=== PATIENT | female | born 2005 | race Caucasian/White ===

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

== ENCOUNTER 2023-08-26 12:15 | Inpatient (IN) | payer OTHER, MEDICAID, SELFPAY ==
[2023-08-26] VITALS (42 sets, daily range): BP systolic 120–176; BP diastolic 58–96; PULSE 109–137; RESP 16; TEMP 37.1–37.7; O2SAT 88–100; BMI 26.2
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
[2023-08-26] MEDS: Lactated Ringers 1,000 ML 999 ML IV (12:30)
[2023-08-26 12:35] LABS: ROM Internal Control Test YES-OK TO RESULT pt. (Internal QC); ROM Patient Test Negative (Negative); Record Kit Lot#, ROM+ K1866
[2023-08-26 13:21] LABS: Absolute Lymphocyte Count 0.98 X10^3/uL (0.83-4.51); Absolute Neutrophil Count 10.3 X10^3/uL (2.0-7.7); Basophil# 0.04 X10^3/uL; Basophil% 0.3 % (0-1); Eosinophil# 0.05 X10^3/uL; Eosinophils% 0.4 % (0-5); Hematocrit 36.8 % (37-47); Hemoglobin 11.8 g/dL (12.0-15.0); Lymphocyte # 0.98 X10^3/ul (0.83-4.51); Mean Corp Hgb Conc 32.1 g/dL (32-36); Mean Corpuscular Hgb 26.3 pg (27.0-32.0); Mean Platelet Vol. 9.2 fl (6.2-12.0); Monocyte# 0.83 X10^3/uL; Monocyte% 6.7 % (0-10); NRBC Flagged by Analyzer 0 % (0-5); Neutrophil # 10.34 X10^3/uL (2.7-7.7); Platelet Count 304 K/mm3 (150-450); RBC Distribution Width CV 12.6 % (11.6-14.6); RBC Distribution Width SD 37.5 fl (35.1-43.9); Red Blood Count 4.49 M/mm3 (4.2-5.4); White Blood Count 12.3 K/mm3 (4.4-11.0)
[2023-08-26] MEDS: Lactated Ringers 1,000 ML 50 ML IV (13:40)
[2023-08-26] MEDS: Penicillin G Pot 5,000,000 UNITS in 0.9% Normal Saline (100mL MB+) 100 ML 150 UNITS IV (13:41)
[2023-08-26] MEDS: fentaNYL-bupivacaine (epidural) 100 ML BAG EPIDURAL ×3 (14:00→23:03)
[2023-08-26 14:02] LABS: AST(SGOT) 19 U/L (15-37); Alanine Aminotransfer ALT/SGPT 22 U/L (13-56); Creatinine, Serum 0.34 mg/dL (0.55-1.02); EST Glomerular Filtration Rate 261 mL/min (>60); Est Glom Filt Rate - Afr Amer 316 mL/min (>60); Estimated Creatinine Clearance 282.59 ml/min; Uric Acid 3.3 mg/dL (2.6-6.0)
[2023-08-26 14:11] LABS: Syphilis Antibodies Non-reactive
[2023-08-26 16:32] LABS: Protein, Urine (Random) < 6.0 mg/dL (<11.9)
[2023-08-26] MEDS: LACTATED RINGERS 500 ML 999 ML IV ×2 (17:04→22:58)
[2023-08-26] MEDS: Penicillin G 3,000,000 Units 50 ML 100 UNITS IV ×2 (17:57→21:37)
[2023-08-26] MEDS: Ondansetron 4 MG/2 ML Vial IV (18:59)
[2023-08-26] MEDS: Lactated Ringers 1,000 ML 200 ML IV (19:21)
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
[2023-08-26] MEDS: DiphenhydrAMINE 25 MG Capsule 50 MG PO (20:39)
[2023-08-26] MEDS: proCHLORPERazine 10 MG/2 ML Vial IV (21:06)
[2023-08-26] MEDS: 0.9% Saline Lock 10 ML Syringe IV (21:06)
[2023-08-26] MEDS: Acetaminophen 500 MG Tablet PO (23:26)
[2023-08-27] VITALS (59 sets, daily range): BP systolic 115–153; BP diastolic 56–74; PULSE 91–156; RESP 16–17; TEMP 36.3–36.9; O2SAT 81–99
--- NOTE | 2023-08-27 01:27 | PLAC_PTH ---
PATIENT: TAMMY ROMEO LOC: [facility] U#:[id number] AGE/SX: 17/F ROOM: WP014 RE08/26/[address]: Nicole Collins CNM : 2005 BED: 1 DIS: 08/29/2023 SPEC #: [id number] RECD: 08/28/23 11:35 STATUS: CAROL REOj #: [id number] ENMA: 08/27/23 01:[address]: Nicole Collins DEPT: SURGICAL PATHOLOGY RECD BY: Henrietta Kasper ENTERED: 08/28/23 11:36 SP TYPE: PLACENTA OTHR DR: Dr. Ya Turcios MD Tissues: Placenta, NOS Procedures: Surgery Specimen Level V HEADER OPERATION: Delivery PRE-OP DIAGNOSIS: Delivery TISSUE SUBMITTED: Placenta MICROSCOPIC DIAGNOSIS Placenta: Placental disc - third trimester placenta (527 gm). - Focal area of intraparenchymal hemorrhage (0.5cm in greatest dimension) Membranes - Focal minimal acute chorioamnionitis. Umbilical cord - three blood vessels and no pathologic diagnosis. SJ: 08/29/23 MICROSCOPIC DESCRIPTION Slides are reviewed. GROSS DESCRIPTION SPECIMEN: PLACENTA / CLINICAL INFORMATION: A. Weight: 2.79 kg B. Gestational Age:36 weeks C. Sex: Female PLACENTAL WEIGHT (POST FIXATION): 527 gm PLACENTAL DIMENSIONS: 18.0 x 16.0 x 3.0 cm PLACENTAL SHAPE: Usual ovoid PLACENTAL WEIGHT FOR GESTATIONAL AGE: Within 10-99th percentile MEMBRANES - Present A. Insertion: Marginal B. Site of rupture from edge: 5.0 cm from edge of placental disc C. Color of membrane: Tobias-wang D. Abnormalities: None UMBILICAL CORD - Present A. Color: Tobias-wang B. Insertion: Central C. Length: 37.0 cm D. Diameter: 1.2 cm E. Number of vessels: Three F. Abnormalities: None PLACENTAL DISC - Present A. Color of surface: Tobias-wang B. surface abnormalities: None C. Maternal cotyledons: Intact with minimal tears D. Attached retro placental clot: No clot E. Cut surface: Dark red and spongy F. Lesions: None G. Separate clot: Absent SECTIONS SUBMITTED: 1. Membrane roll 2. Cord, maternal end 3. Cord, end 4. Placental disc, and maternal surfaces 5. Placental disc, and maternal surfaces 6. Placental disc, and maternal surfaces / 08/28/23 TC:2 CPT: 91810
[2023-08-27] MEDS: Oxytocin 15 Units/NS 250ml 15 UNITS/250 ML IV.SOLN 334 UNITS IV (01:31)
[2023-08-27] MEDS: Methylergonovine 0.2 MG/ML Ampul IM (01:35)
[2023-08-27] MEDS: Oxytocin 15 Units/NS 250ml 15 UNITS/250 ML IV.SOLN 83 UNITS IV (01:59)
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
[2023-08-27] MEDS: Naproxen 500 MG Tablet PO (09:56)
[2023-08-27] MEDS: Senna/Docusate Sodium 1 Tablet PO (15:31)
[2023-08-27] MEDS: Acetaminophen 500 MG Tablet 1000 MG PO (15:31)
[2023-08-28] VITALS (10 sets, daily range): BP systolic 115–122; BP diastolic 55–60; PULSE 75–101; RESP 16; TEMP 36.6–36.9; O2SAT 98–99
[2023-08-28] MEDS: Naproxen 500 MG Tablet PO (05:33)
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
[2023-08-29 01:09] VITALS: BP 110/64; PULSE 81; RESP 16; TEMP 36.3
[2023-08-29 07:50] VITALS: BP 115/57; PULSE 83; RESP 16; TEMP 36.8
[2023-08-29 07:56] VITALS: BP 115/57; PULSE 83
--- NOTE | 2023-08-29 09:05 | PCM.PN.OB ---
Subjective Subjective Denies complaints Objective Data Objective Data Vital Signs: Vital Signs Temp Pulse Resp BP Pulse Ox O2 Del Method 98.2 F 83 16 115/57 L 98 Room Air 08/29/23 07:50 08/29/23 07:56 08/29/23 07:50 08/29/23 07:56 08/28/23 19:43 08/29/23 01:09 Oxygen Delivery Method Room Air Weight: 167 lb Body Mass Index (BMI) 26.2 Intake & Output: Intake and Output for Last 24 Hours 08/27/23 08/28/23 08/29/23 23:59 23:59 23:59 Intake Total 1500 / 1500 Output Total 800 / 800 Balance 700 / 700 Lab / Micro Data 08/26/23 12:30 08/26/23 13:30 Physical Exam Const alert, oriented x3 and no apparent distress HEENT normocephalic GI soft to palpation, non-tender and non-distended GI Narrative: fundus firm, mid & below umbilicus Extremity normal to inspection and no calf tenderness Assessment & Plan (1) (spontaneous vaginal delivery): COMMENT: PPD#2 PLAN: D/c home
--- NOTE | 2023-08-29 09:06 | PCM.DC.SUM ---
Providers Date of Admission: 08/26/23 Primary Care Physician: Dr. Ya Turcios MD Reason For Visit: VAGINAL DELIVERY Diagnosis Discharge Diagnosis (1) (spontaneous vaginal delivery): Status: Acute Code(s): O80 - Encounter for full-term uncomplicated delivery Plan: D/c home Medications at Discharge Home Medications vitamin no.167-folic acid 400 mcg-dha 25 mg chewable tablet (One-A-Day ) 1 tab PO DAILY 08/26/23 acetaminophen 500 mg tablet 1,000 mg (2 x 500 mg) PO Q6H PRN PRN Pain 1-10 Or Fever #0 tabs 08/29/23 naproxen 500 mg tablet 500 mg PO Q8H PRN PRN Pain Score 1-10 #0 tabs 08/29/23 Hospital Course Operations None Procedures None Summary of Care Provided Minutes Spent on Discharge: 15 Physical Exam Const alert, oriented x3 and no apparent distress HEENT normocephalic GI soft to palpation, non-tender and non-distended GI Narrative: fundus firm, mid & below umbilicus Extremity normal to inspection and no calf tenderness Weight / BMI Weight Weight: 167 lb Body Mass Index (BMI) 26.2 ABG / Lab / Microbiology Data 08/26/23 12:30 08/26/23 13:30 D/C Instructions Discharge Diet: No restrictions May resume sexual activity in: 6 weeks Weight Bearing Status: Weight bearing as tolerated Call your doctor if you observe: Fever of 101 or Higher, Coldness, Increased Pain, Change in Color, Inability to urinate, Inability to have a bowel movement, Using more than 1 pad per hour, Shortness of breath, Dizziness, Fainting spells, Chest pain, Increased palpitations (irregular heartbeat), Calf discomfort and Uncontrolled pain Please Follow Up With: Nicole Collins CNM When: Follow up in 2 and 6 weeks for visits. Meaningful Use Info Meaningful Use Meaningful Use Diagnoses (Choose all that apply): None applicable Ischemic Stroke Statin Dosing Therapy Reference: STATIN DOSE THERAPY REFERENCE: * Patients > 75 years receive moderate or high dose statin therapy. * Patients 75 years or YOUNGER should receive HIGH intensity statin dose unless contraindicated. You will be required to document reason for non-treatment if statin daily dose does not meet guidelines. HIGH DOSE STATIN THERAPY DAILY Atorvastatin > than or = to 40 mg Rosuvastatin > than or = to 20 mg Amlodipine + Atorvastatin > than or = to 2.5/40 mg Ezetimibe + Simvastatin 10/80 mg Simvastatin 80mg Discharge Plan Admission Admit Date/Time: 08/26/23 12:15 Primary Reason for Your Visit: Vaginal delivery Attending Provider: Nicole Collins Primary Care Provider: Ya Turcios Discharge Orders/Prescriptions Prescriptions: New acetaminophen 500 mg Tablet 1,000 mg PO Q6H PRN PRN (Reason: Pain 1-10 Or Fever) Qty: 0 0RF naproxen 500 mg Tablet 500 mg PO Q8H PRN PRN (Reason: Pain Score 1-10) Qty: 0 0RF Continued One-A-Day 400 mcg- 25 mg tablet,chewable 1 tab PO DAILY Referrals / Follow Up: Ya Turcios MD [Primary Care Provider] - Disposition Disposition (needs filled in before D/C Order can be placed): Home, Self Care
[2023-08-29 12:20] LABS: Pathology Specimen OB SEE PATHOLOGY REPORT
== END 2023-08-29 11:30 | disposition home or self-care (01) | DRG 807 ==
LOC: WPOUT 12:29 → WP 12:29
PROVIDERS: Admitting Provider Advanced Practice Midwife; PCP Pediatrics; Visit Provider Advanced Practice Midwife
DX: O60.14X0 Preterm labor third trimester with preterm delivery third trimester, not applicable or unspecified (principal); Z37.0 Single live birth; O70.1 Second degree perineal laceration during delivery; O71.82 Other specified trauma to perineum and vulva; Z14.1 Cystic fibrosis carrier; Z3A.35 35 weeks gestation of pregnancy
CPT/HCPCS: 59025; 59050; 82565; 82570; 84112; 84156; 84450; 84460; 84550; 85025; 86780; 86850; 86900; 86901; 88307; 99221; J7120; A4216; G0378; J2405